=== PATIENT | male | born 1960 | race Caucasian/White ===

== ENCOUNTER → 2021-09-13 | Outpatient (CLI) | payer OTHER ==
--- NOTE | 2021-09-13 15:04 | CARD ---
MR#: [id number] Date of Study: 09/13/2021 Ordering Physician: MONISHA SHARPE, Referring Physician: MONISHA SHARPE, Tech: Kayy Oh [facility] APPROVED REPORT EXAM: Two-dimensional and M-mode echocardiogram with Doppler and color Doppler. Other Information Quality : AverageHR: 54bpm Rhythm : NSR INDICATION Cardiac Disease: CAD RISK FACTORS Hypertension Hyperlipidemia 2D DIMENSIONS RVDd3.8 (2.9-3.5cm)Left Atrium(2D)4.6 (1.6-4.0cm) IVSd1.4 (0.7-1.1cm)Aortic Root(2D)3.5 (2.0-3.7cm) LVDd4.3 (3.9-5.9cm)LVOT Diameter1.9 (1.8-2.4cm) PWd1.4 (0.7-1.1cm)LVDs1.9 (2.5-4.0cm) FS (%) 56.0 %SV70.8 ml LVEF(%)86.7 (>50%) Aortic Valve AoV Peak Lance.354.4cm/sAoV VTI76.9cm AO Peak GR.50.2mmHgLVOT Peak Lance.127.1cm/s AO Mean GR.24mmHgAVA (VMAX)1.04cm2 Mitral Valve MV E Uhtaqvjc091.4cm/sMV DECEL PPTL158xj MV A Iorpfvwa01.0cm/sE/A Ratio1.6 Pulmonary Valve PV Peak Hmbfywgv627.9cm/s Tricuspid Valve TR P. Eljbplgl603co/sTR Peak Gr.18mmHg LEFT VENTRICLE The left ventricle is normal size. There is mild concentric left ventricular hypertrophy. The left ve ntricular systolic function is normal and the ejection fraction is within normal range. EF 55% There is normal LV segmental wall motion. Transmitral Doppler flow pattern is Grade I-abnormal relaxation p attern. RIGHT VENTRICLE The right ventricle is normal size. There is normal right ventricular wall thickness. The right ventr icular systolic function is normal. ATRIA The left atrium is mildly dilated. The right atrium is mildly dilated. The interatrial septum is inta ct with no evidence for an atrial septal defect or patent foramen ovale as noted on 2-D or Doppler im aging. AORTIC VALVE Doppler and Color Flow revealed trace aortic regurgitation. There is mild to moderate aortic stenosis based on Doppler criteria with a mean gradient of 24 mmHg. The valve was not well visualized. There is a bioprosthetic aortic valve prosthesis. MITRAL VALVE The mitral valve is normal in structure and function. There is no evidence of mitral valve prolapse. There is no mitral valve stenosis. Doppler and Color-flow revealed moderate anteriorly directed eccen tric mitral regurgitation. TRICUSPID VALVE The tricuspid valve is normal in structure and function. Doppler and Color Flow revealed mild tricusp id regurgitation. Estimated PAP 23-25 mmHg. There is no tricuspid valve stenosis. PULMONIC VALVE Doppler and Color Flow revealed no pulmonic valvular regurgitation. There is no pulmonic valvular mayur nosis. GREAT VESSELS The aortic root is normal in size. The IVC is normal in size and collapses >50% with inspiration. PERICARDIAL EFFUSION There is no evidence of significant pericardial effusion. Critical Notification Critical Value: No <Conclusion> The left ventricular systolic function is normal and the ejection fraction is within normal range. EF 55% There is normal LV segmental wall motion. There is mild to moderate aortic stenosis based on Doppler criteria with a mean gradient of 24 mmHg. The valve was not well visualized. Doppler and Color-flow revealed moderate anteriorly directed eccentric mitral regurgitation. Signed by : Rocky Newton, Electronically Approved : 09/13/2021 15:03:39
== END ==
LOC: ECHO 10:36
PROVIDERS: ATTEND Internal Medicine Cardiovascular Disease
DX: I08.3 Combined rheumatic disorders of mitral, aortic and tricuspid valves (principal); Z95.2 Presence of prosthetic heart valve
CPT/HCPCS: 93306; C8929